=== PATIENT | female | born 2000 | race Caucasian/White ===

== ENCOUNTER 2022-04-06 12:42 | Emergency (ER) | payer BC ==
[~2022-04-06] VITALS: Ht 162.6 cm; Wt 81.8 kg
[2022-04-06 12:49] VITALS: TEMP 98.3
[2022-04-06] MEDS ORDERED: LEXAPRO20 MG PO (12:51)
[2022-04-06] MEDS ORDERED: BUSPAR DIVIDOSE15 MG PO (12:53)
[2022-04-06 14:10] VITALS: BP 104/69; PULSE 65
== END 2022-04-06 14:10 | disposition home or self-care (01) ==
LOC: COL.ER 12:42
DX: Z29.14 Encounter for prophylactic rabies immune globulin (principal); Z20.3 Contact with and (suspected) exposure to rabies

== ENCOUNTER → 2022-04-09 | Outpatient (RCR) | payer BC ==
[~2022-04-09] VITALS: Ht 162.6 cm; Wt 79.5 kg
[~2022-04-09] MED LIST: BUSPAR DIVIDOSE15 MG PO; LEXAPRO20 MG PO
[2022-04-09 17:11] VITALS: BP 113/70; PULSE 50; TEMP 97.9
== END | disposition home or self-care (01) ==
LOC: EUO → COL.ER 14:09 → EUO 16:29 → COL.ER 16:29
DX: Z20.3 Contact with and (suspected) exposure to rabies (principal)

== ENCOUNTER 2022-04-21 16:15 | Outpatient (RCR) | payer BC ==
[2022-04-13 10:36] VITALS: BP 109/70; PULSE 78; TEMP 98.8
[~2022-04-21] VITALS: Ht 162.6 cm; Wt 79.5 kg
[2022-04-21 16:51] VITALS: BP 104/68; PULSE 71; TEMP 97.8
== END 2022-04-21 16:59 | disposition home or self-care (01) ==
LOC: EUO 16:15
DX: Z23 Encounter for immunization (principal)

== ENCOUNTER → 2023-03-05 | Outpatient (CLI) | payer OTHER, BC ==
[~2023-03-05] MED LIST changes: +IBU800 M1 PO; +PERCOCET 325 MG1 TA2 PO; +PRENATAL TABLET PO
--- NOTE | 2023-03-05 15:36 | NUR ---
Pt, Mana Keith, presents to walk-in clinic with 17 day old baby boy, Roland Keith, for a evaluation. Pt states she would like to have the latch checked, that Roland is gassy, and to check what size shield she should use for her breast pump. Roland was born on [birth year] and weighed 7# 0.5oz (3190 gms). Pt states he weighed 7# 6oz at Dr. Nazario office on 02/26/23. Today Roland weighs 7# 14oz (3572 gms). Pt latches Roland, handling baby and breast well. Bottom lip rolled out a little more but otherwise latch is good. After Roland had a gain of 1.9oz (54 gms). He is content and does not appear to have gas pains at this time. Discussed normal infant behaviour. Other concerns addressed as well. POC: Continue ad radha. F/U; As scheduled with physicians and walk-in clinic as desired. Questions invited and answered.
== END ==
LOC: LAC 14:12
DX: Z39.1 Encounter for care and examination of lactating mother (principal); Z71.89 Other specified counseling